=== PATIENT | male | born 1935 | race African-American/Black ===

== ENCOUNTER 2017-06-19 21:33 | Emergency (ER) | payer MEDICARE ==
[2017-06-19 22:01] LABS: Basophils % (Auto) 0.6 % (0.0-1.8); Eosinophils % (Auto) 1.3 % (0.0-4.3); Hematocrit 39.6 % (35.5-45.6); Hemoglobin 13.6 gm/dl (11.8-15.2); Mean Corpuscular HGB Conc 34 % (32-34); Mean Corpuscular Hemoglobin 31 pg (28-32); Mean Corpuscular Volume 91 fl (84-94); Platelet Count 157 K/mm3 (140-440); Red Blood Count 4.36 M/mm3 (3.65-5.03); White Blood Count 9.3 K/mm3 (4.5-11.0)
[2017-06-19 22:16] LABS: Anion Gap 18 mmol/L; Blood Urea Nitrogen 14 mg/dL (9-20); Calcium 9.2 mg/dL (8.4-10.2); Carbon Dioxide 24 mmol/L (22-30); Chloride 97.5 mmol/L (98-107); Glucose 137 mg/dL (75-100); Potassium 4.3 mmol/L (3.6-5.0); Sodium 135 mmol/L (137-145)
[2017-06-20] MEDS ORDERED: NACL 0.9% 1000 ML 1,000 ML IV ONE (00:33)
[2017-06-20] MEDS ORDERED: VANCOMYCIN/NS 1 GM/250 ML 1 GM/250 ML BAG IV ONE (00:33)
--- NOTE | 2017-06-20 01:26 | Emergency Department Report ---
- General Chief complaint: Dizziness Stated complaint: LT HAND PAIN SWELLING Time Seen by Provider: 06/20/17 00:11 Source: patient Mode of arrival: Ambulatory Limitations: No Limitations - History of Present Illness MD complaint: insect bite/sting -: Gradual Location: Cathi PEREZ hand Severity: moderate Severity scale (0 -10): 6 Quality: aching, sharp Consistency: constant Improves with: none Worsens with: none Context: other (while working on the garden) - Related Data Previous Rx's Medication Instructions Recorded Last Taken Type Sulfamethoxazole/Trimethoprim 1 each PO BID #20 tablet 06/20/17 Unknown Rx [Bactrim DS TAB] Allergies Allergy/AdvReac Type Severity Reaction Status Date / Time No Known Allergies Allergy Unverified 06/19/17 21:40 Abscess Boil HPI - HPI Chief Complaint: Dizziness Stated Complaint: LT HAND PAIN SWELLING Time Seen by Provider: 06/20/17 00:11 Duration: 3 Days Location: Upper Extremity Severity: Moderate History: Yes Pain, Yes Insect Bite, No Fever, No Purulent Drainage, No Numbness , No Foreign Body, No Previous History Home Medications: Previous Rx's Medication Instructions Recorded Last Taken Type Sulfamethoxazole/Trimethoprim 1 each PO BID #20 tablet 06/20/17 Unknown Rx [Bactrim DS TAB] Allergies/Adverse Reactions: Allergies Allergy/AdvReac Type Severity Reaction Status Date / Time No Known Allergies Allergy Unverified 06/19/17 21:40 ED Review of Systems ROS: Stated complaint: LT HAND PAIN SWELLING Other details as noted in HPI Comment: All other systems reviewed and negative ED Past Medical Hx - Past Medical History Previous Medical History?: Yes Hx Hypertension: Yes Hx Diabetes: Yes Additional medical history: high cholesterol. DVT - Surgical History Past Surgical History?: No - Social History Smoking Status: Never Smoker Substance Use Type: Prescribed - Medications Home Medications: Home Medications Medication Instructions Recorded Confirmed Last Taken Type Sulfamethoxazole/Trimethoprim 1 each PO BID #20 tablet 06/20/17 Unknown Rx [Bactrim DS TAB] ED Physical Exam - General Limitations: No Limitations General appearance: alert, in no apparent distress - Head Head exam: Present: atraumatic, normocephalic - Eye Eye exam: Present: normal appearance - ENT ENT exam: Present: mucous membranes moist - Neck Neck exam: Present: normal inspection - Respiratory Respiratory exam: Present: normal lung sounds bilaterally. Absent: respiratory distress - Cardiovascular Cardiovascular Exam: Present: regular rate, normal rhythm. Absent: systolic murmur, diastolic murmur, rubs, gallop - GI/Abdominal GI/Abdominal exam: Present: soft, normal bowel sounds - Rectal Rectal exam: Present: deferred - Extremities Exam Extremities exam: Present: normal inspection - Back Exam Back exam: Present: normal inspection - Neurological Exam Neurological exam: Present: alert, oriented X3 - Psychiatric Psychiatric exam: Present: normal affect, normal mood - Skin Skin exam: Present: rash (6 x 4 cm area of erythem and blistering in dorsum of the hand , full rom , sensitivity is normal, good pulses.) ED Course Vital Signs 06/19/17 21:40 Temperature 97.4 F L Pulse Rate 76 Respiratory 18 Rate Blood Pressure 140/65 O2 Sat by Pulse 98 Oximetry ED Medical Decision Making - Lab Data Result diagrams: 06/19/17 21:47 06/19/17 21:47 - Radiology Data Radiology results: report reviewed, image reviewed - Medical Decision Making patient doing well, left hand cellulites, stops at the wrist , discolored and blistering, tender to palpation and no itching consistent with cellulites dose of vanco and fluids given here,. lactic acid level and wbc normal. ,. Critical care attestation.: If time is entered above; I have spent that time in minutes in the direct care of this critically ill patient, excluding procedure time. ED Disposition Clinical Impression: Cellulitis Disposition: - TO HOME OR SELFCARE Is pt being admited?: No Does the pt Need Aspirin: No Condition: Good Instructions: Cellulitis (ED) Prescriptions: Sulfamethoxazole/Trimethoprim [Bactrim DS TAB] 1 each PO BID #20 tablet Referrals: PRIMARY CARE, [Primary Care Provider] - 3-5 Days Time of Disposition: 01:26
[2017-06-20] MEDS ORDERED: TYLENOL PO ONE (02:15)
[2017-06-20] MEDS ORDERED: TYLENOL ONE (02:16)
[2017-06-20 02:22] VITALS: BP 105/84
--- NOTE | 2017-06-20 07:24 | XRay Report ---
Chest 2 views: History: Shortness of breath. Findings: Normal cardiomediastinal silhouette. Trachea is midline. No consolidation, pneumothorax or pleural effusion. Impression: No acute cardiopulmonary findings.
== END 2017-06-20 02:22 | disposition home or self-care (01) ==
LOC: ED 21:33
DX: L03.114 Cellulitis of left upper limb (principal); W57.XXXA Bitten or stung by nonvenomous insect and other nonvenomous arthropods, initial encounter; Y93.9 Activity, unspecified; Y92.9 Unspecified place or not applicable; Y99.9 Unspecified external cause status
CPT/HCPCS: 36415; 71020; 80048; 82140; 84484; 85025; 93005; 93010; 96365; 99284; J3370; J7030

== ENCOUNTER 2017-09-24 11:21 | Inpatient (IN) | payer MEDICARE ==
--- NOTE | 2017-09-24 12:07 | XRay Report ---
PORTABLE CHEST INDICATION: Shortness of breath. COMPARISON: 06/19/2017 FINDINGS: Portable, frontal chest radiograph demonstrate stable cardiomediastinal silhouette, aortic knob calcifications and clear lungs with stable minimal fluid or thickening along the right minor fissure. No significant pleural effusions or CHF. EKG leads. Stable bones. CONCLUSION: No acute chest process or significant interval change, as described. Thank you for the opportunity to participate in this patient's care.
[2017-09-24 13:08] LABS: Basophils % (Auto) 0.4 % (0.0-1.8); Eosinophils % (Auto) 0.4 % (0.0-4.3); Hematocrit 42.4 % (35.5-45.6); Mean Corpuscular HGB Conc 33 % (32-34); Mean Corpuscular Hemoglobin 30 pg (28-32); Mean Corpuscular Volume 92 fl (84-94); Platelet Count 177 K/mm3 (140-440); Red Blood Count 4.61 M/mm3 (3.65-5.03); Red Cell Distribution Width 13.6 % (13.2-15.2)
--- NOTE | 2017-09-24 13:27 | Emergency Department Report ---
HPI - General Chief Complaint: Dizziness Time Seen by Provider: 09/24/17 13:06 - HPI HPI: Room 5 The patient is an 82-year-old male presented with a chief complaint chest pain, dizziness. The [place] was at the airport going through screening in preparation for a flight when he began to feel dizzy, weak all over with anterior chest pressure. Patient felt near syncopal but never actually lost consciousness. Patient describes anterior chest pressure associated with shortness of breath. Patient denies nausea/vomiting or diaphoresis. Patient denies cough, fever or pleurisy. The patient currently gives his chest pressure a score of 2/10. Patient denies ever having a stress test or cardiac catheterization Location: Chest, see above Duration: [See above] Quality: Pressure Severity: 2/10 Modifying factors: [see above] Context: [see above] Mode of transportation: [not driving] ED Past Medical Hx - Past Medical History Previous Medical History?: Yes Hx Hypertension: Yes Hx Diabetes: Yes Additional medical history: high cholesterol. DVT - Surgical History Past Surgical History?: Yes - Family History Family history: no significant - Social History Smoking Status: Never Smoker Substance Use Type: Alcohol (rarely) - Medications Home Medications: Home Medications Medication Instructions Recorded Confirmed Last Taken Type Pravastatin [Pravachol] 40 mg PO QHS 09/24/17 09/24/17 09/24/17 History Tamsulosin [Flomax] 0.4 mg PO QDAY 09/24/17 09/24/17 09/24/17 History ED Review of Systems ROS: Stated complaint: DIZZINESS,WEAKNESS Other details as noted in HPI Comment: All other systems reviewed and negative Constitutional: denies: chills, diaphoresis, fever Eyes: denies: eye pain, eye discharge, vision change ENT: denies: ear pain, throat pain Respiratory: shortness of breath Cardiovascular: chest pain Endocrine: no symptoms reported Gastrointestinal: denies: abdominal pain, nausea, vomiting, diarrhea Genitourinary: denies: urgency, dysuria Musculoskeletal: denies: back pain, joint swelling, arthralgia Skin: denies: rash, lesions Neurological: denies: headache, weakness, paresthesias Psychiatric: denies: anxiety, depression Hematological/Lymphatic: denies: easy bleeding, easy bruising Physical Exam - Physical Exam Vital Signs: Vital Signs 09/24/17 09/24/17 11:43 11:52 Temperature 97.8 F Pulse Rate 58 L Respiratory 22 20 Rate Blood Pressure 130/52 O2 Sat by Pulse 100 Oximetry Physical Exam: GENERAL: The patient is well-developed well-nourished male lying on stretcher not appearing to be in acute distress. [] HEENT: Normocephalic. Atraumatic. Extraocular motions are intact. Patient has moist mucous membranes. NECK: Supple. Trachea midline CHEST/LUNGS: Clear to auscultation. There is no respiratory distress noted. HEART/CARDIOVASCULAR: Regular. There is no tachycardia. There is no gallop rub or murmur. ABDOMEN: Abdomen is soft, nontender. Patient has normal bowel sounds. There is no abdominal distention. SKIN: There is no rash. There is no edema. There is no diaphoresis. NEURO: The patient is awake, alert, and oriented. The patient is cooperative. The patient has no focal neurologic deficits. The patient has normal speech. Cranial nerves II through XII grossly intact, no drift, wrapper selector equal bilaterally MUSCULOSKELETAL: There is no evidence of acute injury. ED Course Vital Signs 09/24/17 09/24/17 11:43 11:52 Temperature 97.8 F Pulse Rate 58 L Respiratory 22 20 Rate Blood Pressure 130/52 O2 Sat by Pulse 100 Oximetry ED Medical Decision Making - Lab Data Result diagrams: 09/24/17 12:54 09/24/17 12:54 Laboratory Tests 09/24/17 09/24/17 12:54 12:54 WBC 8.0 RBC 4.61 Hgb 14.0 Hct 42.4 MCV 92 MCH 30 MCHC 33 RDW 13.6 Plt Count 177 Lymph % (Auto) 17.6 [place] % (Auto) 6.6 Eos % (Auto) 0.4 Baso % (Auto) 0.4 Lymph # 1.4 [place] # 0.5 Eos # 0.0 Baso # 0.0 Seg Neutrophils % 75.0 H Seg Neutrophils # 6.0 Sodium 135 L Potassium 5.9 H Chloride 100.5 Carbon Dioxide 19 L Anion Gap 21 BUN 12 Creatinine 1.0 Estimated GFR > 60 BUN/Creatinine Ratio 12 Glucose 113 H Calcium 8.8 Troponin T < 0.010 - EKG Data -: EKG Interpreted by Md EKG shows normal: sinus rhythm Rate: normal - EKG Data When compared to previous EKG there are: no significant change Interpretation: unchanged when compared t (06/19/2017), nonspecific ST-T wave nicci (T-wave inversions in leads 2, 3, aVF) - Radiology Data Radiology results: report reviewed (CT head, CT chest), image reviewed (CT head , CT chest) CT HEAD WITHOUT CONTRAST INDICATION: Dizziness, near syncope. COMPARISON: None similar. FINDINGS: Noncontrast head CT demonstrates symmetric, age-appropriate, mildly enlarged ventricles and sulci. Mild periventricular and few white matter hypodense small vessel ischemic disease noted. Approximately 3 mm lacunar infarct along anterior limb of the right internal capsule, axial image 25, series 2. Minimal, benign left basal ganglia calcification. No acute infarct, hemorrhage, mass effect or midline shift. No abnormal extra axial fluid collections, though an approximately 6 mm peripherally calcified anterior interhemispheric possible meningioma noted on the left, axial image 26. Normal posterior fossa with preserved basilar cisterns. Normal imaged eye globes. Slight ethmoid and left frontal sinus mucosal thickening. Hypoplastic right frontal sinus. Clear remainder imaged paranasal sinuses and mastoid air cells. Extensive atherosclerotic ICA calcifications. Normal calvarium and scalp. Radiopaque dental material and numerous missing teeth noted. Cervical spondylosis. CONCLUSION: No acute intracranial CT abnormality with age-appropriate atrophy, microvascular changes and few other findings, including a 6 mm anterior interhemispheric possible meningioma, as described. Thank you for the opportunity to participate in this patient's care. Transcribed By: RS Dictated By: BRYN COKER MD Electronically Authenticated By: BRYN COKER MD Signed Date/Time: 09/24/17 1443 DD/ 1435 TD/TT: 09/24/[address] angiography of the chest including 3-D reconstructed images. History: Chest pain, near syncope and dizziness. Findings: There is no evidence of pulmonary emboli. There is prominence of the ascending thoracic aorta measuring 3.4 cm in diameter. There is no evidence of aortic dissection. The mediastinum and hilar regions are unremarkable. The lungs are free of acute infiltrates or congestive changes. No pleural fluid is seen. Impression: No evidence of pulmonary emboli or other acute findings. Transcribed By: MRP Dictated By: CHARU QUINTANA MD Electronically Authenticated By: CHARU QUINTANA MD Signed Date/Time: 09/24/171438 DD/ 34 TD/TT: 09/24/171438 - Differential Diagnosis ACS, GERD, PE, pericarditis Critical care attestation.: If time is entered above; I have spent that time in minutes in the direct care of this critically ill patient, excluding procedure time. ED Disposition Clinical Impression: Chest pain Disposition: OP ADMIT IP TO THIS HOSP Is pt being admited?: Yes Does the pt Need Aspirin: Yes Condition: Fair Instructions: Chest Pain (ED) Referrals: PRIMARY CARE, [Primary Care Provider] - 3-5 Days Time of Disposition: 14:58 (Dr Lofton notified)
[2017-09-24] MEDS ORDERED: SUBLIMAZE IV ONE (13:30)
[2017-09-24] MEDS ORDERED: NITRO-BID 2% TP ONE (13:30)
[2017-09-24] MEDS ORDERED: ZOFRAN IV ONE (13:30)
[2017-09-24 13:44] LABS: Anion Gap 21 mmol/L; Blood Urea Nitrogen 12 mg/dL (9-20); Carbon Dioxide 19 mmol/L (22-30); Chloride 100.5 mmol/L (98-107); Glucose 113 mg/dL (75-100); Potassium 5.9 mmol/L (3.6-5.0); Sodium 135 mmol/L (137-145)
[2017-09-24 13:53] LABS: BUN/Creatinine Ratio 12; Calcium 8.8 mg/dL (8.4-10.2)
--- NOTE | 2017-09-24 14:48 | Cat Scan Report ---
CT HEAD WITHOUT CONTRAST INDICATION: Dizziness, near syncope. COMPARISON: None similar. FINDINGS: Noncontrast head CT demonstrates symmetric, age-appropriate, mildly enlarged ventricles and sulci. Mild periventricular and few white matter hypodense small vessel ischemic disease noted. Approximately 3 mm lacunar infarct along anterior limb of the right internal capsule, axial image 25, series 2. Minimal, benign left basal ganglia calcification. No acute infarct, hemorrhage, mass effect or midline shift. No abnormal extra axial fluid collections, though an approximately 6 mm peripherally calcified anterior interhemispheric possible meningioma noted on the left, axial image 26. Normal posterior fossa with preserved basilar cisterns. Normal imaged eye globes. Slight ethmoid and left frontal sinus mucosal thickening. Hypoplastic right frontal sinus. Clear remainder imaged paranasal sinuses and mastoid air cells. Extensive atherosclerotic ICA calcifications. Normal calvarium and scalp. Radiopaque dental material and numerous missing teeth noted. Cervical spondylosis. CONCLUSION: No acute intracranial CT abnormality with age-appropriate atrophy, microvascular changes and few other findings, including a 6 mm anterior interhemispheric possible meningioma, as described. Thank you for the opportunity to participate in this patient's care.
--- NOTE | 2017-09-24 14:54 | Cat Scan Report ---
CT angiography of the chest including 3-D reconstructed images. History: Chest pain, near syncope and dizziness. Findings: There is no evidence of pulmonary emboli. There is prominence of the ascending thoracic aorta measuring 3.4 cm in diameter. There is no evidence of aortic dissection. The mediastinum and hilar regions are unremarkable. The lungs are free of acute infiltrates or congestive changes. No pleural fluid is seen. Impression: No evidence of pulmonary emboli or other acute findings.
[2017-09-24] MEDS ORDERED: ASPIRIN PO ONE (14:55)
--- NOTE | 2017-09-24 15:59 | History and Physical Report ---
History of Present Illness Date of examination: 09/24/17 Date of admission: 09/24/17 Chief complaint: Chest pain and dizziness History of present illness: Very pleasant 82-year-old [place] male patient with significant past medical history of hypertension ,diabetes mellitus ,dyslipidemia presented to the emergency room with chest pain and dizziness. Patient's daughter reports that he was at the airport going to [facility] when he suddenly developed sudden dizziness and weakness and chest pain/pressure with near syncope like symptoms, but denies loss of consciousness. Patient grades his chest pain between 2-3/10 with mild shortness of breath, denies nausea or vomiting or diaphoresis Denies orthopnea paroxysmal nocturnal dyspnea Positive cardiac enzymes and negative, CT head negative for acute abnormality Past History Past Medical History: diabetes, hypertension, hyperlipidemia, other (BPH/ history of DVT) Social history: lives with family, full code. denies: smoking, alcohol abuse, prescription drug abuse Family history: hypertension Medications and Allergies Allergies Allergy/AdvReac Type Severity Reaction Status Date / Time No Known Allergies Allergy Verified 06/20/17 02:22 Home Medications Medication Instructions Recorded Confirmed Last Taken Type Pravastatin [Pravachol] 40 mg PO QHS 09/24/17 09/24/17 09/24/17 History Tamsulosin [Flomax] 0.4 mg PO QDAY 09/24/17 09/24/17 09/24/17 History Active Meds: Active Medications Enoxaparin Sodium (Lovenox) 40 mg SUB-Q QDAY [facility] Pravastatin Sodium (Pravachol) 40 mg PO QHS [facility] Tamsulosin HCl (Flomax) 0.4 mg PO QDAY [facility] Review of Systems Constitutional: no weight loss, no weight gain Ears, nose, mouth and throat: no nasal congestion, no nasal discharge Cardiovascular: chest pain, lightheadedness, shortness of breath, no orthopnea, no palpitations Respiratory: no cough with sputum, no hemoptysis Gastrointestinal: no abdominal pain, no nausea, no vomiting, no diarrhea Genitourinary Male: no dysuria, no hematuria Musculoskeletal: no myalgias, no arthritis Integumentary: no rash, no lesions Neurological: other (dizziness/near syncope), no weakness, no numbness Psychiatric: no anxiety, no depression Endocrine: no cold intolerance, no heat intolerance Hematologic/Lymphatic: no easy bruising, no easy bleeding Allergic/Immunologic: no urticaria, no allergic rhinitis Exam - Constitutional Vitals: Temp Pulse Resp BP Pulse Ox 97.8 F 60 17 135/59 100 09/24/17 11:43 09/24/17 14:06 09/24/17 14:06 09/24/17 14:06 09/24/17 14:06 General appearance: Present: no acute distress, well-nourished - EENT Eyes: Present: PERRL, EOM intact - Neck Neck: Present: supple, normal ROM - Respiratory Respiratory effort: normal Respiratory: bilateral: diminished, negative: rales, rhonchi, wheezing - Cardiovascular Rhythm: regular Heart Sounds: Present: S1 & S2 - Extremities Extremities: no ischemia, No edema - Abdominal General gastrointestinal: Present: soft, non-tender, non-distended, normal bowel sounds - Integumentary Integumentary: Present: clear, warm - Musculoskeletal Musculoskeletal: strength equal bilaterally, generalized weakness - Psychiatric Psychiatric: appropriate mood/affect, cooperative - Neurologic Neurologic: moves all extremities Results - Labs CBC & Chem 7: 09/24/17 12:54 09/24/17 15:06 Labs: Abnormal lab results 09/24/17 09/24/17 Range/Units 12:54 12:54 Seg Neutrophils % 75.0 H (40.0-70.0) % Sodium 135 L (137-145) mmol/L Potassium 5.9 H (3.6-5.0) mmol/L Carbon Dioxide 19 L (22-30) mmol/L Glucose 113 H (75-100) mg/dL Assessment and Plan --Chest pain: Rule out acute coronary syndrome Patient has multiple risk factors, managed with aspirin, beta blockers, elo inhibitors, nitrates and statins Serial cardiac enzymes, EKG, echocardiogram for LV function and ejection fraction. As patient has multiple risk factors, he would benefit by stress test, cardiology evaluation if anything abnormal --GERD: Pepcid --Hypertension: Resume home antihypertensives, when necessary medications --Type 2 diabetes mellitus; on metformin, hold metformin, Accu-Chek sliding scale coverage and ADA diet and insulin as needed, Hemoglobin A1c --Dyslipidemia; resume statin, low cholesterol diet --Benign Prostatic Hypertrophy; continue tamsulosin --DVT prophylaxis; Lovenox --Full code Closely monitor the patient and adjust the management as needed DC planning. Case management Plan of care discussed with the patient and his family members through a bilingual family members at the bedside Patient verbalized understanding.
[2017-09-24] MEDS ORDERED: NITROSTAT SL PRN (16:04)
[2017-09-24] MEDS ORDERED: DILAUDID IV PRN (16:04)
[2017-09-24 18:44] LABS: Creatine Kinase MB 2.2 ng/mL (0.0-4.0)
[2017-09-24 18:46] LABS: Creatine Kinase 154 units/L (55-170)
[2017-09-24] MEDS: PRAVACHOL PO SCH (23:09)
[2017-09-24] MEDS: COREG PO SCH (23:09)
[2017-09-24] MEDS: PEPCID PO SCH (23:10)
[2017-09-25 01:32] LABS: Creatine Kinase MB 2.8 ng/mL (0.0-4.0)
[2017-09-25 01:33] LABS: Creatine Kinase 198 units/L (55-170)
[2017-09-25] MEDS ORDERED: LEXISCAN IV ONE ×2 (10:10)
[2017-09-25] MEDS: PEPCID PO SCH ×2 (12:48→21:23)
[2017-09-25] MEDS: LOVENOX SUB-Q SCH (12:48)
[2017-09-25] MEDS: ASPIRIN PO SCH (12:48)
[2017-09-25] MEDS: COREG PO SCH ×2 (12:48→21:23)
[2017-09-25] MEDS: COZAAR PO SCH (12:48)
[2017-09-25] MEDS: FLOMAX PO SCH (12:48)
--- NOTE | 2017-09-25 13:59 | Discharge Summary ---
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 Normal stress test /GERD: Pepcid /h/o Hypertension: Resumed home antihypertensives, placed on when necessary iv medications his BP noted to be low and was positive for orthostatic hypotansion Stopped all BP meds /Type 2 diabetes mellitus; on metformin, hold metformin, Accu-Chek sliding scale coverage and ADA diet and insulin as needed, Hemoglobin A1c /Dyslipidemia; resumed statin, low cholesterol diet /Benign Prostatic Hypertrophy; continue tamsulosin /dizziness likely from orthostatic hypotension h/o multiple fall per daughter placed on gentle iv fluid hydration, stopped all BP meds Ct head with no acute finding Disposition: DC-01 TO HOME OR SELFCARE Time spent for discharge: 32 minutes Core Measure Documentation - Palliative Care Palliative Care/ Comfort Measures: Not Applicable - Core Measures Any of the following diagnoses?: none Exam - Constitutional Vitals: Temp Pulse Resp BP Pulse Ox 98.2 F 78 16 121/52 97 09/25/17 06:04 09/25/17 10:45 09/25/17 06:04 09/25/17 10:45 09/25/17 06:04 General appearance: Present: no acute distress, well-nourished - EENT Eyes: Present: PERRL ENT: hearing intact, clear oral mucosa - Neck Neck: Present: supple, normal ROM - Respiratory Respiratory effort: normal Respiratory: bilateral: CTA - Cardiovascular Heart Sounds: Present: S1 & S2. Absent: rub, click - Extremities Extremities: pulses symmetrical, No edema Peripheral Pulses: within normal limits - Abdominal General gastrointestinal: Present: soft, non-tender, non-distended, normal bowel sounds - Integumentary Integumentary: Present: clear, warm, dry - Musculoskeletal Musculoskeletal: gait normal, strength equal bilaterally - Psychiatric Psychiatric: appropriate mood/affect, intact judgment & insight - Neurologic Neurologic: CNII-XII intact, moves all extremities Plan Activity: advance as tolerated Weight Bearing Status: Weight Bear as Tolerated Diet: low fat, low salt Follow up with: PRIMARY CARE, [Primary Care Provider] - 3-5 Days Forms: Discharge Signature Page Prescriptions: Aspirin EC [Aspirin Enteric Coated TAB] 81 mg PO QDAY #30 tablet. Pantoprazole [Protonix] 40 mg PO QDAY #30 tablet
--- NOTE | 2017-09-25 15:19 | Progress Note ---
Assessment and Plan /Chest pain: Ruled out acute coronary syndrome Patient has multiple risk factors, manage with aspirin, beta blockers, elo inhibitors, nitrates and statins Serial cardiac enzymes normal and EKG showed no ST elevation, pending echocardiogram for LV function and ejection fraction. Normal stress test /GERD: Pepcid /Hypertension: Resume home antihypertensives, when necessary medications /Type 2 diabetes mellitus; on metformin, hold metformin, Accu-Chek sliding scale coverage and ADA diet and insulin as needed, Hemoglobin A1c /Dyslipidemia; resumed statin, low cholesterol diet /Benign Prostatic Hypertrophy; continue tamsulosin /dizziness h/o multiple fall per daughter will obtain orthostatic vitals, PT eval Ct head with no acute finding Subjective Date of service: 09/25/17 Interval history: Pt seen and examined per daughter he has multiple fall and dizziness episodes in the past pt states he feels better today denies any chest pain Objective - Constitutional Vitals: Vital Signs - 12hr 09/25/17 09/25/17 09/25/17 04:08 06:04 07:33 Temperature 98.2 F 98.2 F Pulse Rate 71 72 67 Respiratory 16 16 Rate Blood Pressure 144/63 Blood Pressure 144/63 [Right] O2 Sat by Pulse 96 97 Oximetry 09/25/17 09/25/17 09/25/17 10:13 10:41 10:42 Temperature Pulse Rate 69 70 77 Respiratory Rate Blood Pressure 155/70 158/69 135/43 Blood Pressure [Right] O2 Sat by Pulse Oximetry 09/25/17 09/25/17 09/25/17 10:43 10:44 10:45 Temperature Pulse Rate 80 74 78 Respiratory Rate Blood Pressure 94/60 116/46 121/52 Blood Pressure [Right] O2 Sat by Pulse Oximetry General appearance: Present: no acute distress, well-nourished - EENT Eyes: PERRL, EOM intact ENT: hearing intact, clear oral mucosa Ears: bilateral: normal - Neck Neck: supple, normal ROM - Respiratory Respiratory effort: normal Respiratory: bilateral: CTA - Cardiovascular Rhythm: regular Heart Sounds: Present: S1 & S2. Absent: gallop, rub Extremities: pulses intact, No edema, normal color, Full ROM - Gastrointestinal General gastrointestinal: Present: soft, non-tender, non-distended, normal bowel sounds - Integumentary Integumentary: clear, warm, dry - Musculoskeletal Musculoskeletal: 1, strength equal bilaterally - Neurologic Neurologic: moves all extremities - Psychiatric Psychiatric: memory intact, appropriate mood/affect, intact judgment & insight - Labs CBC & Chem 7: 09/24/17 12:54 09/24/17 15:06 Labs: Abnormal lab results 09/25/17 09/25/17 Range/Units 00:32 04:44 Hemoglobin A1c 6.4 H (4-6) % Total Creatine Kinase 198 H (55-170) units/L
[2017-09-25] MEDS ORDERED: TYLENOL PO PRN (20:58)
[2017-09-25] MEDS: PRAVACHOL PO SCH (21:23)
--- NOTE | 2017-09-26 01:01 | Treadmill Report ---
THALLIUM STRESS TEST LEFT VENTRICLE: Left ventricular chamber size is within normal spread. Perfusion study demonstrates homogeneous uptake of the tracer in all segments, no significant perfusion defects identified. Gated analysis demonstrates normal left ventricular systolic function, ejection fraction 77%. CONCLUSION: Normal myocardial perfusion study. JOB# [id number] CA/NTS
[2017-09-26 01:50] LABS: Calcium 8.5 mg/dL (8.4-10.2)
[2017-09-26] MEDS: LOVENOX SUB-Q SCH (10:20)
[2017-09-26] MEDS: PEPCID PO SCH ×2 (10:21→22:00)
[2017-09-26] MEDS: ASPIRIN PO SCH (10:21)
[2017-09-26] MEDS: FLOMAX PO SCH (10:21)
[2017-09-26] MEDS: COZAAR PO SCH (10:25)
[2017-09-26] MEDS ORDERED: NACL 0.9% 500 ML IV ONE (13:00)
[2017-09-26] MEDS: NACL 0.9% 1000 ML 1,000 ML IV SCH ×2 (13:11→23:53)
[2017-09-26 14:29] LABS: Bacteria,Urine 1+ /HPF (Negative); Mucus,Urine FEW /HPF
[2017-09-26 14:44] LABS: Bilirubin,Urine Negative (Negative); Ketones,Urine Negative (Negative)
[2017-09-26 14:45] LABS: Blood,Urine Negative (Negative); Leukocyte Esterase,Urine Negative (Negative); Nitrite,Urine Negative (Negative); Urobilinogen,Urine < 2.0 mg/dL (<2.0)
--- NOTE | 2017-09-26 16:53 | Progress Note ---
Assessment and Plan /Chest pain: Ruled out acute coronary syndrome Patient has multiple risk factors, manage with aspirin, beta blockers, elo inhibitors, nitrates and statins Serial cardiac enzymes normal and EKG showed no ST elevation, pending echocardiogram for LV function and ejection fraction. Normal stress test /GERD: Pepcid /Hypertension: Resume home antihypertensives, when necessary iv medications will stop coreg for orthostatic hypotension /Type 2 diabetes mellitus; on metformin, hold metformin, Accu-Chek sliding scale coverage and ADA diet and insulin as needed, Hemoglobin A1c /Dyslipidemia; resumed statin, low cholesterol diet /Benign Prostatic Hypertrophy; continue tamsulosin /dizziness likely from orthostatic hypotension h/o multiple fall per daughter follow PT eval, gentle iv fluid hydration Ct head with no acute finding ordered cortisol level Subjective Date of service: 09/26/17 Interval history: Pt seen and examined per daughter he has multiple fall and dizziness episodes in the past Orthostatic vitals shows significant drop in BP when standing Objective - Exam Narrative Exam: General appearance: Present: no acute distress, well-nourished - EENT Eyes: PERRL, EOM intact ENT: hearing intact, clear oral mucosa Ears: bilateral: normal - Neck Neck: supple, normal ROM - Respiratory Respiratory effort: normal Respiratory: bilateral: CTA - Cardiovascular Rhythm: regular Heart Sounds: Present: S1 & S2. Absent: gallop, rub Extremities: pulses intact, No edema, normal color, Full ROM - Gastrointestinal General gastrointestinal: Present: soft, non-tender, non-distended, normal bowel sounds - Integumentary Integumentary: clear, warm, dry - Musculoskeletal Musculoskeletal: 1, strength equal bilaterally - Neurologic Neurologic: moves all extremities - Psychiatric Psychiatric: memory intact, appropriate mood/affect, intact judgment & insight - Constitutional Vitals: Vital Signs - 12hr 09/26/17 09/26/17 09/26/17 07:00 07:20 10:25 Temperature 98.5 F Pulse Rate 71 74 74 Respiratory 16 Rate Blood Pressure 97/45 97/45 O2 Sat by Pulse 89 Oximetry 09/26/17 12:03 Temperature Pulse Rate 64 Respiratory Rate Blood Pressure 79/42 O2 Sat by Pulse 93 Oximetry - Labs CBC & Chem 7: 09/24/17 12:54 09/26/17 00:44 Labs: Abnormal lab results 09/26/17 09/26/17 Range/Units 00:44 08:11 Carbon Dioxide 20 L (22-30) mmol/L Glucose 135 H (75-100) mg/dL Ur Specific [place] 1.035 H (1.003-1.030)
[2017-09-26] MEDS: PRAVACHOL PO SCH (22:01)
[2017-09-27] MEDS: LOVENOX SUB-Q SCH (11:13)
[2017-09-27] MEDS: ASPIRIN PO SCH (11:13)
[2017-09-27] MEDS: FLOMAX PO SCH (11:13)
[2017-09-27] MEDS: PEPCID PO SCH (11:13)
[2017-09-27] MEDS: NACL 0.9% 1000 ML 1,000 ML IV SCH (11:20)
[2017-09-27 19:04] VITALS: BP 132/53
== END 2017-09-27 16:05 | disposition home or self-care (01) | DRG 312 ==
LOC: ED 11:21 → 4A 15:52
PROVIDERS: ADMIT Internal Medicine; ATTEND Internal Medicine
DX: I95.1 Orthostatic hypotension (principal); R07.89 Other chest pain; K21.9 Gastro-esophageal reflux disease without esophagitis; I10 Essential (primary) hypertension; E11.9 Type 2 diabetes mellitus without complications; E78.5 Hyperlipidemia, unspecified; N40.0 Benign prostatic hyperplasia without lower urinary tract symptoms; Z86.718 Personal history of other venous thrombosis and embolism; Z82.49 Family history of ischemic heart disease and other diseases of the circulatory system; Z79.84 Long term (current) use of oral hypoglycemic drugs
CPT/HCPCS: 36415; 70450; 71010; 71275; 78452; 80048; 81001; 82533; 82550; 82553; 83036; 84132; 84443; 84484; 85025; 87040; 93005; 93010; 93017; 93306; 96374; 96375; A9502; G8978-GP; G8979-GP; G8980-GP; J1650; J2405; J2785; J3010; J7030; J7040; Q9967